=== PATIENT | female | born 1995 | race Caucasian/White ===

== ENCOUNTER 2020-01-05 15:01 | Outpatient (CLI) | payer BC, MEDICAID ==
--- NOTE | 2020-01-05 15:43 | Non Stress Test Report ---
Non Stress Test Datetime Report Generated by CPN: 01/05/2020 15:42 DEMOGRAPHIC EGA NST: 35.0 MONITORING Monitor Explained: Monitor Explained; Test Explained; Patient Verbalized Understanding Time on Monitor: 01/05/2020 15:13 Time off Monitor: 01/05/2020 15:38 NST Duration: 25 NST INTERVENTIONS NST Interventions: PO Hydration; Reposition Patient Physician Notified NST: KKaity Amaral, CNM BABY A: [id number] BABY A Movement : Present Contraction Frequency : none FHR Baseline : 125 Accelerations : 15X15 Variability : Moderate 6-25bpm NST Review: Meets Criteria for Reactive NST NST Review and Verified By : Jossie Worthy, RN NST Results: Reactive NST REPORT Report Trigger: Send Report
== END 2020-01-05 15:52 | disposition home or self-care (01) ==
LOC: LC 15:01
PROVIDERS: ATTEND Obstetrics & Gynecology
DX: O36.8130 Decreased fetal movements, third trimester, not applicable or unspecified (principal); Z3A.33 33 weeks gestation of pregnancy
CPT/HCPCS: 59025

== ENCOUNTER 2020-02-22 23:39 | Outpatient (CLI) | payer BC, MEDICAID ==
[2020-02-23 00:21] LABS: APPEARANCE,URINE TURBID; BILIRUBIN,URINE NEGATIVE (NEGATIVE); COLOR,URINE YELLOW; GLUCOSE, URINE NEGATIVE (NEGATIVE); KETONES,URINE NEGATIVE (NEGATIVE); LEUKOCYTE ESTERASE,URINE LARGE (NEGATIVE); NITRITE,URINE NEGATIVE (NEGATIVE); PROTEIN,URINE 30 mg/dL (NEGATIVE); URINE SPECIFIC GRAVITY 1.012; UROBILINOGEN,URINE NEGATIVE mg/dL (<2.0)
--- NOTE | 2020-02-23 00:35 | Non Stress Test Report ---
Non Stress Test Datetime Report Generated by CPN: 02/23/2020 00:35 DEMOGRAPHIC EGA NST: 40.1 INDICATION Indication for Study (NST) Other: LC - Swelling MONITORING Monitor Explained: Monitor Explained; Test Explained; Patient Verbalized Understanding Time on Monitor: 02/22/2020 23:55 Time off Monitor: 02/23/2020 00:25 NST Duration: 30 NST INTERVENTIONS NST Interventions: PO Hydration Physician Notified NST: Dr. Johnson BABY A: [id number] BABY A Movement : Present Contraction Frequency : 2-6 FHR Baseline : 120 Accelerations : 15X15 Decelerations : None Variability : Moderate 6-25bpm NST Review: Meets Criteria for Reactive NST NST Review and Verified By : Abdoul Cruz RN NST Results: Reactive NST REPORT Report Trigger: Send Report
[2020-02-23 00:38] LABS: URINE AMPHETAMINES SCREEN NEGATIVE; URINE BARBITURATES SCREEN NEGATIVE; URINE BENZODIAZEPINES SCREEN NEGATIVE; URINE COCAINE SCREEN NEGATIVE; URINE MARIJUANA (THC) SCREEN NEGATIVE; URINE METHADONE SCREEN NEGATIVE; URINE PHENCYCLIDINE SCREEN NEGATIVE
== END 2020-02-23 00:33 | disposition home or self-care (01) ==
LOC: LC 23:39
PROVIDERS: ATTEND Obstetrics & Gynecology
DX: O47.1 False labor at or after 37 completed weeks of gestation (principal); O48.0 Post-term pregnancy; Z3A.40 40 weeks gestation of pregnancy
CPT/HCPCS: 80307; 81005

== ENCOUNTER 2020-02-27 19:37 | Inpatient (IN) | payer BC, MEDICAID ==
[2020-02-27] MEDS ORDERED: DINOPROSTONE 10 MG VAGINAL INSERT.SR PV ONE (19:57)
[2020-02-27] MEDS ORDERED: RINGERS SOLUTION,LACTATED 1,000 ML IV ONE (19:57)
[2020-02-27] MEDS ORDERED: ACETAMINOPHEN 325 MG TABLET PO PRN (19:57)
[2020-02-27] MEDS ORDERED: MAG HYDROX/AL HYDROX/SIMETH SUSP 30 ML UDCUP PO PRN (19:57)
[2020-02-27] MEDS ORDERED: ZOLPIDEM TARTRATE 5 MG TABLET PO PRN (19:57)
[2020-02-27] MEDS ORDERED: MISOPROSTOL 0.2 MG TABLET ONE (20:52)
[2020-02-27] MEDS ORDERED: OXYTOCIN/0.9 % SODIUM CHLORIDE 30 UNIT/500 ML RTUINJ ONE (20:52)
[2020-02-27] MEDS ORDERED: LIDOCAINE 1% INJ-PF (10 MG/ML) 30 ML SDV ONE (20:52)
[2020-02-27] MEDS ORDERED: OXYTOCIN 10 UNIT/ML VIAL ONE (20:52)
[2020-02-27] MEDS ORDERED: DINOPROSTONE 10 MG VAGINAL INSERT.SR ONE (20:52)
[2020-02-27] MEDS: RINGERS SOLUTION,LACTATED 1,000 ML IV PRN (21:04)
[2020-02-27 21:07] LABS: ABSOLUTE EOSINOPHILS # (AUTO) 0.1 10^3/uL (0.0-0.6); ABSOLUTE LYMPHOCYTES (AUTO) 2.8 10^3/uL (0.5-4.7); ABSOLUTE MONOCYTES (AUTO) 1.1 10^3/uL (0.1-1.4); ABSOLUTE NEUT (AUTO) 11.1 10^3/uL (1.7-8.2); BASOPHILS % (AUTO) 0.2 % (0-2); EOSINOPHILS % (AUTO) 0.7 % (0-6); HEMATOCRIT 36.3 % (36.0-47.0); HEMOGLOBIN 12.2 g/dL (12.0-15.5); LYMPHOCYTES % (AUTO) 18.3 % (13-45); MEAN CORPUSCULAR HEMOGLOBIN 29.1 pg (27.0-33.4); MEAN CORPUSCULAR HGB CONC 33.6 g/dL (32.0-36.0); MEAN CORPUSCULAR VOLUME 87 fl (80-97); PLATELET COUNT 192 10^3/uL (150-450); RED BLOOD COUNT 4.18 10^6/uL (3.72-5.28); RED CELL DISTRIBUTION WIDTH 13.1 % (11.5-14.0); SEGMENTED NEUTROPHILS % (AUTO) 73.8 % (42-78); TOTAL CELLS COUNTED % (AUTO) 100 %; WHITE BLOOD COUNT 15.1 10^3/uL (4.0-10.5)
[2020-02-27 21:17] LABS: APPEARANCE,URINE CLEAR; BILIRUBIN,URINE NEGATIVE (NEGATIVE); COLOR,URINE STRAW; GLUCOSE, URINE NEGATIVE (NEGATIVE); KETONES,URINE NEGATIVE (NEGATIVE); LEUKOCYTE ESTERASE,URINE NEGATIVE (NEGATIVE); NITRITE,URINE NEGATIVE (NEGATIVE); PROTEIN,URINE NEGATIVE (NEGATIVE); URINE SPECIFIC GRAVITY 1.008; UROBILINOGEN,URINE NEGATIVE mg/dL (<2.0)
[2020-02-27 21:23] LABS: URINE AMPHETAMINES SCREEN NEGATIVE; URINE BARBITURATES SCREEN NEGATIVE; URINE BENZODIAZEPINES SCREEN NEGATIVE; URINE COCAINE SCREEN NEGATIVE; URINE MARIJUANA (THC) SCREEN NEGATIVE; URINE METHADONE SCREEN NEGATIVE; URINE PHENCYCLIDINE SCREEN NEGATIVE
--- NOTE | 2020-02-28 00:19 | Admission Physical ---
Datetime Report Generated by CPN: 02/28/2020 00:18 CURRENT ADMISSION Chief Complaint: Scheduled Induction of Labor Indication for Induction: Post Dates Admit Impression : Term, Intrauterine ; Postterm, Intrauterine Admit Plan: Admit to Unit; Initiate Labor Induction Protocol ALLERGIES Medication Allergies: No Medication Allergies: No Known Allergies (02/27/2020) Latex: No Latex Allergies Food Allergies: n/a Environmental Allergies: n/a OBSTETRICAL HISTORY EDC: 02/21/2020 00:00 : 1 Para: 0 Term: 0 : 0 SAB: 0 IAB: 0 Ectopic: 0 Livin Cesareans: 0 VBACs: 0 Multiple Births: 0 Gestational Diabetes: No Rh Sensitization: No Incompetent Cervix: No DAVID: No Infertility: No ART Treatment: No Uterine Anomaly: No IUGR: No Hx Previous C/S: No Macrosomia: No Hx Loss/Stillborn: No PIH: No Hx : No Placenta Previa/Abruption: No Depression/PP Depression: No PTL/PROM: No Post Hemorrhage: No Current Procedures: Ultrasound Obstetrical History Comments: G1- current SEE RECORDS Alcohol: No Marijuana : No Cocaine: No Other Illicit Drugs: No Cigarettes: Former Smoker. [id number] MEDICAL HISTORY Diabetes: No Blood Transfusion: No Pulmonary Disease (Asthma, TB): No Breast Disease: No Hypertension: No Environment Artist Surgery: No Heart Disease: No Hosp/Surgery: Yes Autoimmune Disorder: No Anesthetic Complications: No Kidney Disease: No Abnormal Pap Smear: No Neuro/Epilepsy: No Psychiatric Disorders: No Other Medical Diseases: No Hepatitis/Liver Disease: No Significant Family History: No Varicosities/Phlebitis: No Trauma/Violence : No Thyroid Dysfunction: No Medical History Comments: root canal on 02/21/2020 INFECTIOUS HISTORY Gonorrhea: No Genital Herpes: No Chlamydia: No Tuberculosis: No Syphilis: No Hepatitis: No HIV/AIDS Exposure: No Rash or Viral Illness: No HPV: No PHYSICAL EXAM General: Normal HEENT: Normal Neurologic: Normal Thyroid: Normal Heart: Normal Lungs: Normal Breast: Deferred Back: Normal Abdomen: Normal Genitourinary Exam: Normal Extremities: Normal DTRs: Normal Pelvic Type: Adequate Vital Signs: Reviewed VAGINAL EXAM Dilatation: 1 Effacement: 0 MEMBRANES Pooling: Negative Membranes: Intact FETUS A EGA: 41.0 Monitoring: External US FHR- Baseline: 140 Variability: Moderate 6-25bpm Accelerations: 15X15 Decelerations: None FHR Category: Category I Presentation: Vertex Admit Comment: admit for induction PLANS FOR LABOR AND DELIVERY Labor and Delivery: None Pain Management: None Feeding Preference: Breast Benefit of Breast Feed Discussed: Yes Circumcision: Yes INFORMED CONSENT Signature: with User ID: [email or web address]
[2020-02-28] MEDS ORDERED: NALBUPHINE HCL INJ 10 MG/1 ML AMPULE ONE ×2 (05:36→10:37)
[2020-02-28] MEDS ORDERED: PROMETHAZINE HCL INJ 25 MG/1 ML VIAL ONE ×2 (05:36→10:38)
[2020-02-28] MEDS ORDERED: PROMETHAZINE HCL INJ 25 MG/1 ML VIAL IV ONE ×2 (05:38→10:47)
[2020-02-28] MEDS ORDERED: NALBUPHINE HCL INJ 10 MG/1 ML AMPULE INJ ONE (05:38)
[2020-02-28] MEDS ORDERED: NALBUPHINE HCL INJ 10 MG/1 ML AMPULE IV ONE (10:47)
[2020-02-28] MEDS ORDERED: OXYTOCIN/0.9 % SODIUM CHLORIDE 30 UNIT/500 ML RTUINJ IV PRN (11:23)
[2020-02-28] MEDS ORDERED: FENTANYL/BUPIVACAINE/NS/PF 300 MCG/150 ML RTUINJ EPI ONE (13:19)
[2020-02-28] MEDS ORDERED: EPHEDRINE SULFATE INJ 50 MG/1 ML AMPULE ONE (13:19)
[2020-02-28] MEDS ORDERED: BUPIVACAINE HCL 0.25 % INJ/PF (2.5 MG/1 ML) 30 ML VIAL ONE (13:19)
[2020-02-28] MEDS: RINGERS SOLUTION,LACTATED 1,000 ML IV PRN (18:20)
[2020-02-29] MEDS ORDERED: ZOLPIDEM TARTRATE 5 MG TABLET PO PRN (01:55)
[2020-02-29] MEDS ORDERED: BENZOCAINE/MENTHOL AEROSOL SPRAY 56 ML TOP PRN (01:55)
[2020-02-29] MEDS ORDERED: ACETAMINOPHEN WITH CODEINE #3 TABLET PO PRN ×2 (01:55)
[2020-02-29] MEDS ORDERED: GLYCERIN/WITCH HAZEL LEAF 1 EACH MED..WIPE TP PRN (01:55)
[2020-02-29] MEDS ORDERED: PROMETHAZINE HCL INJ 25 MG/1 ML VIAL IV PRN (01:55)
[2020-02-29] MEDS ORDERED: OXYTOCIN/0.9 % SODIUM CHLORIDE 30 UNIT/500 ML RTUINJ IV PRN (01:55)
[2020-02-29] MEDS ORDERED: MAGNESIUM HYDROXIDE SUSP 30 ML UDCUP PO PRN (01:55)
[2020-02-29] MEDS ORDERED: DIPH/PERTUSS(ACELL)/TETANUS VAC/PF 0.5 ML SYR (>=10YO) IM PRN (01:55)
[2020-02-29] MEDS ORDERED: PROMETHAZINE HCL 25 MG TABLET PO PRN (01:55)
[2020-02-29] MEDS ORDERED: PROMETHAZINE HCL 25 MG SUPP.RECT PR PRN (01:55)
[2020-02-29] MEDS ORDERED: DIBUCAINE 1% OINTMENT 28 GM TP PRN (01:55)
[2020-02-29] MEDS ORDERED: NA PHOS,M-B/NA PHOS,DI-BA (ADULT) 133 ML ENEMA PR PRN (01:55)
[2020-02-29] MEDS ORDERED: MEASLES,MUMPS&RUBELLA VACC/PF 0.5 ML VIAL SUBCUT PRN (01:55)
[2020-02-29] MEDS ORDERED: PSEUDOEPHEDRINE HCL 30 MG TABLET PO PRN (01:55)
[2020-02-29] MEDS ORDERED: ACETAMINOPHEN 650 MG SUPP.RECT PR PRN (01:55)
[2020-02-29] MEDS ORDERED: DIPHENHYDRAMINE HCL 25 MG CAPSULE PO PRN (01:55)
[2020-02-29] MEDS: IBUPROFEN 800 MG TABLET PO SCH ×3 (05:23→21:06)
[2020-02-29] MEDS: SENNOSIDES/DOCUSATE 8.6-50 MG 1 EACH TABLET PO SCH (11:59)
[2020-02-29] MEDS: PRENATAL VITAMIN W DHA CAPSULE PO SCH (11:59)
[2020-02-29] MEDS: FERROUS SULFATE 325 MG TABLET PO SCH ×2 (11:59→17:31)
[2020-02-29] MEDS: FAMOTIDINE 20 MG TABLET PO SCH ×2 (11:59→21:06)
[2020-02-29] MEDS: DOCUSATE SODIUM 100 MG CAPSULE PO SCH ×2 (11:59→17:31)
--- NOTE | 2020-02-29 14:12 | PDOC PROGRESS REPORT ---
Subjective-OB Progress Note for:: 02/29/20 - PP Day #1, doing well, , A+, Rubella Immune, UOB voiding Physical Exam (OB) Vital Signs: Temp Pulse Resp BP Pulse Ox 97.6 F 64 16 100/55 L 99 02/29/20 08:00 02/29/20 08:00 02/29/20 08:00 02/29/20 08:00 02/29/20 08:00 Intake & Output 02/28/20 02/29/20 03/01/20 06:59 06:59 06:59 Intake Total 1000 Balance 1000 Weight 90.4 kg - General General Appearance: Appears well, Alert - PIH/Pre-Eclampsia DTR's: 2 + Clonus: Negative Headache: Absent Epigastric Pain: No Visual Changes: No - Lochia Lochia Amount: Small 10-25 ml Lochia Color: Rubra/Red - Abdomen Description: Tender, Flat Hernia Present: No Fundal Description: Firm, Midline Fundal Height: u/u - u/2 - Respiratory Respiratory Status: No respiratory distress - Genitourinary Genitourinary Note: voiding - Extremities Upper extremity: Normal inspection Lower extremities: Normal inspection - Neurological Cognition: Normal Orientation: AAOx4 - Psychological Associated symptoms: Normal affect, Normal mood Objective-Diagnostic Laboratory: 02/27/20 20:52 Assessment and Plan(PN) - Assessment and Plan (1) (normal spontaneous vaginal delivery) Is this a current diagnosis for this admission?: Yes (2) Encounter for induction of labor Is this a current diagnosis for this admission?: Yes (3) Second degree perineal laceration Is this a current diagnosis for this admission?: Yes Plan:: Routine PP orders - Time Spent with Patient Time with patient: Less than 15 minutes Medications reviewed and adjusted accordingly: Yes - Disposition Anticipated Discharge: Home Within: within 24 hours
[2020-03-01] MEDS: IBUPROFEN 800 MG TABLET PO SCH ×2 (05:53→13:25)
[2020-03-01 07:40] LABS: HEMATOCRIT 32.2 % (36.0-47.0); HEMOGLOBIN 10.9 g/dL (12.0-15.5); MEAN CORPUSCULAR HEMOGLOBIN 29.9 pg (27.0-33.4); MEAN CORPUSCULAR VOLUME 88 fl (80-97); PLATELET COUNT 190 10^3/uL (150-450); RED BLOOD COUNT 3.66 10^6/uL (3.72-5.28); RED CELL DISTRIBUTION WIDTH 13.3 % (11.5-14.0); WHITE BLOOD COUNT 17.3 10^3/uL (4.0-10.5)
[2020-03-01] MEDS: FERROUS SULFATE 325 MG TABLET PO SCH (09:29)
[2020-03-01] MEDS: FAMOTIDINE 20 MG TABLET PO SCH (09:29)
[2020-03-01] MEDS: PRENATAL VITAMIN W DHA CAPSULE PO SCH (09:29)
[2020-03-01] MEDS: SENNOSIDES/DOCUSATE 8.6-50 MG 1 EACH TABLET PO SCH (09:29)
[2020-03-01] MEDS: DOCUSATE SODIUM 100 MG CAPSULE PO SCH (09:29)
--- NOTE | 2020-03-01 09:49 | PDOC PROGRESS REPORT ---
Subjective-OB Progress Note for:: 03/01/20 Subjective: Doing well, ready to go home, breast feeding, voiding Physical Exam (OB) Vital Signs: Temp Pulse Resp BP Pulse Ox 97.5 F 93 18 105/74 97 03/01/20 07:41 03/01/20 07:41 03/01/20 07:41 03/01/20 07:41 03/01/20 07:41 Intake & Output 02/29/20 03/01/20 03/02/20 06:59 06:59 06:59 Intake Total 600 Balance 600 - PIH/Pre-Eclampsia DTR's: 2 + Clonus: Negative Headache: Absent Epigastric Pain: No Visual Changes: No - Lochia Lochia Amount: Small 10-25 ml Lochia Color: Rubra/Red - Abdomen Description: Tender, Flat Hernia Present: No Fundal Description: Firm, Midline Fundal Height: u/u - u/2 Objective-Diagnostic Laboratory: 03/01/20 07:30 03/01/20 07:30 WBC 17.3 H RBC 3.66 L Hgb 10.9 L Hct 32.2 L MCV 88 MCH 29.9 MCHC 34.0 RDW 13.3 Plt Count 190 Assessment and Plan(PN) - Assessment and Plan (1) Encounter for induction of labor Is this a current diagnosis for this admission?: Yes (2) (normal spontaneous vaginal delivery) Is this a current diagnosis for this admission?: Yes (3) Second degree perineal laceration Is this a current diagnosis for this admission?: Yes - Time Spent with Patient Time with patient: Less than 15 minutes Medications reviewed and adjusted accordingly: Yes - Disposition Anticipated Discharge: Home Within: within 24 hours
--- NOTE | 2020-03-01 09:56 | PDOC DISCHARGE SUMMARY ---
Impression - Admit/DC Date/PCP Admission Date/Primary Care Provider: 02/27/20 19:37 LAURA DUNCAN MD Discharge Date: 03/01/20 - Discharge Diagnosis (1) Encounter for induction of labor Is this a current diagnosis for this admission?: Yes (2) (normal spontaneous vaginal delivery) Is this a current diagnosis for this admission?: Yes (3) Second degree perineal laceration Is this a current diagnosis for this admission?: Yes - Additional Information Resuscitation Status: Full Code Discharge Diet: As Tolerated, Regular Discharge Activity: Activity As Tolerated, Pelvic Rest Referrals: LAURA DUNCAN MD [Primary Care Provider] - Home Medications: Vits96/Iron Fum/Folic [ Tablet] 1 each PO DAILY 01/05/20 HPI Gestational Age: 40.6 Reason(s) for Admission: Induction of Labor Procedures: NST, Ultrasound Intrapartum Procedure(s): Spontaneous Vaginal Delivery Complication(s): Laceration-Periurethral Hospital Course Hospital Course: routine Results Laboratory Results: WBC 17.3 10^3/uL (4.0-10.5) H 03/01/20 07:30 RBC 3.66 10^6/uL (3.72-5.28) L 03/01/20 07:30 Hgb 10.9 g/dL (12.0-15.5) L 03/01/20 07:30 Hct 32.2 % (36.0-47.0) L 03/01/20 07:30 MCV 88 fl (80-97) 03/01/20 07:30 MCH 29.9 pg (27.0-33.4) 03/01/20 07:30 MCHC 34.0 g/dL (32.0-36.0) 03/01/20 07:30 RDW 13.3 % (11.5-14.0) 03/01/20 07:30 Plt Count 190 10^3/uL (150-450) 03/01/20 07:30 Lymph % (Auto) 18.3 % (13-45) 02/27/20 20:52 [place] % (Auto) 7.0 % (3-13) 02/27/20 20:52 Eos % (Auto) 0.7 % (0-6) 02/27/20 20:52 Baso % (Auto) 0.2 % (0-2) 02/27/20 20:52 Absolute Neuts (auto) 11.1 10^3/uL (1.7-8.2) H 02/27/20 20:52 Absolute Lymphs (auto) 2.8 10^3/uL (0.5-4.7) 02/27/20 20:52 Absolute Monos (auto) 1.1 10^3/uL (0.1-1.4) 02/27/20 20:52 Absolute Eos (auto) 0.1 10^3/uL (0.0-0.6) 02/27/20 20:52 Absolute Basos (auto) 0.0 10^3/uL (0.0-0.2) 02/27/20 20:52 Seg Neutrophils % 73.8 % (42-78) 02/27/20 20:52 Urine Color STRAW 02/27/20 19:55 Urine Appearance CLEAR 02/27/20 19:55 Urine pH 6.0 (5.0-9.0) 02/27/20 19:55 Ur Specific [place]ang 1.008 02/27/20 19:55 Urine Protein NEGATIVE mg/dL (NEGATIVE) 02/27/20 19:55 Urine Glucose (UA) NEGATIVE mg/dL (NEGATIVE) 02/27/20 19:55 Urine Ketones NEGATIVE mg/dL (NEGATIVE) 02/27/20 19:55 Urine Blood NEGATIVE (NEGATIVE) 02/27/20 19:55 Urine Nitrite NEGATIVE (NEGATIVE) 02/27/20 19:55 Urine Bilirubin NEGATIVE (NEGATIVE) 02/27/20 19:55 Urine Urobilinogen NEGATIVE mg/dL (<2.0) 02/27/20 19:55 Ur Leukocyte Esterase NEGATIVE (NEGATIVE) 02/27/20 19:55 Urine Ascorbic Acid NEGATIVE (NEGATIVE) 02/27/20 19:55 Urine Opiates Screen NEGATIVE 02/27/20 19:55 Urine Methadone Screen NEGATIVE 02/27/20 19:55 Ur Barbiturates Screen NEGATIVE 02/27/20 19:55 Ur Phencyclidine Scrn NEGATIVE 02/27/20 19:55 Ur Amphetamines Screen NEGATIVE 02/27/20 19:55 U Benzodiazepines Scrn NEGATIVE 02/27/20 19:55 Urine Cocaine Screen NEGATIVE 02/27/20 19:55 U Marijuana (THC) Screen NEGATIVE 02/27/20 19:55 RPR NONREACTIVE (NONREACTIVE) 02/27/20 20:52 Blood Type A POSITIVE 02/27/20 20:52 Antibody Screen NEGATIVE 02/27/20 20:52 Plan Health Concerns: routine Plan of Treatment: routine Goals: no complications Time Spent: Less than 30 Minutes
[2020-03-01 10:26] VITALS: BP 100/55
--- NOTE | 2020-03-05 07:50 | Delivery Summary ---
Del Sum A-C Datetime Report Generated by CPN: 03/05/2020 07:49 DELIVERY PERSONNEL DELIVERY PERSONNEL: [id number] Delivery Doctor:: Nimisha Hodge MD Labor and Delivery Nurse:: Jasmyn Cruz RNassembler gold frame Nurse:: GREYSON Bermudez Nursery Nurse:: irene Zimmerman RN MATERNAL INFORMATION Delivery Anesthesia: Local; Epidural Medications After Delivery: Pitocin Bolus-Please Comment; Pitocin 30 Units in 500ml NS/D5W Delivery QBL: 100 Maternal Complications: None Provider Comments: Called to patients room complete and pushing. Dr. Talley in room and I relieved him.She delivered after a few pushes. Viable male in vertex presentation. vigorous and cord clamping delayed 30 seconds. Oral and nasal suctioning. placed skin to skin. Both Mother and stable. LABOR SUMMARY EDC: 02/21/2020 00:00 No. Babies in Womb: 1 Attempted: No Labor Anesthesia: Epidural LABOR INFORMATION Reason for Induction: Postterm Onset of Labor: 02/28/2020 10:28 Complete Dilatation: 02/28/2020 21:10 Cervical Ripening Agents: Cervidil Oxytocin: Induction Group B Beta Strep: Negative Antibiotics # of Doses: 0 Antibiotics Time of Last Dose: 0 Name of Antibiotic Given: 0 Steroids Given: None Reason Steroids Not Administered: Not Applicable MEMBRANES Membranes Rupture Method: Artificial Rupture of Membranes: 02/28/2020 10:28 Length of Rupture (hr): 12.38 Amniotic Fluid Color: Clear Amniotic Fluid Amount: Moderate Amniotic Fluid Odor: Normal STAGES OF LABOR Stage 1 hr: 10 Stage 1 min: 42 Stage 2 hr: 1 Stage 2 min: 41 Stage 3 hr: 0 Stage 3 min: 5 Total Time in Labor hr: 12 Total Time in Labor min: 28 VAGINAL DELIVERY Episiotomy: None Laceration #1: Perineal Laceration Extension #1: Second Degree Laceration Repair: Yes Laceration Repair Note: In layered closure with 2-0 chromic and 3-0 chromic Sponge Count Correct: N/A Sharps Count Correct: N/A CSECTION DELIVERY Primary Indication: N/A Secondary Indication: N/A CSection Incidence: N/A Labor: N/A Elective: N/A CSection Incision: N/A BABY A INFORMATION Infant Delivery Date/Time: 02/28/2020 22:51 Method of Delivery: Vaginal Method of Delivery: Vaginal Nurse Controlled Delivery: No Born in Route : No : N/A Forceps: N/A Vacuum Extraction: N/A Shoulder Dystocia : No PRESENTATION/POSITION BABY A Presentation: Cephalic Cephalic Presentation: Vertex Vertex Position: Right Occipital Anterior Breech Presentation: N/A PLACENTA INFORMATION BABY A Placenta Delivery Time : 02/28/2020 22:56 Placenta Method of Delivery: Spontaneous Placenta Method of Delivery: Spontaneous Placenta Status: Delivered SCORES BABY A Heart Rate 1 min: >100 bpm Resp Effort 1 min: Good Cry Reflex Irritability 1 min: Cough or Sneeze or Pulls Away Muscle Tone 1 min: Some Flexion of Extremities Color 1 min: Blue/Pale SCORE 1 MIN: 7 Heart Rate 5 min: >100 bpm Resp Effort 5 min: Good Cry Reflex Irritability 5 min: Cough or Sneeze or Pulls Away Muscle Tone 5 min: Active Motion Color 5 min: Body [place], Extremities Blue SCORE 5 MIN: 9 INFORMATION BABY A Gestational Age at Delivery: 41.0 Gestational Status: Late Term- 41- 41.6 Weeks Outcome : Liveborn Infant Condition : Stable Infant Sex: Male Infant Sex: Male IDENTIFICATION BABY A Infant Verification Date/Time: 02/29/2020 00:10 ID Band Number: [id number] Mother's Name Verified: Yes RN Verifying : , RN/MJerry, RN WEIGHT/LENGTH BABY A Birthweight (gm): 4148 Infant Weight (lb): 9 Weight (oz): 2 Infant Length (in): 21.25 Length (cm): 53.98 CORD INFORMATION BABY A No. Cord Vessels: 3 Nuchal Cord : N/A Cord Blood Taken: Yes-For Storage (Mom's Blood type +) Suction: Mouth; Nose ASSESSMENT BABY A Complications: None Physical Findings at Delivery: Caput Succedaneum Physical Findings- Other: see nursery admission assessment Infant Respirations: Appears Normal Skin to Skin: Yes Skin to Skin Time (min): 60 Gin Inspector/ALS Called : No Infant Care By: Cleo Zimmerman RN Transferred To: Remains with Mother BABY B INFORMATION : N/A SIGNATURES Signature: with User ID: [email or web address] : with User ID: [email or web address]
== END 2020-03-01 15:27 | disposition home or self-care (01) | DRG 807 ==
LOC: LR 19:37 → 2S 02-29 02:52
PROVIDERS: ADMIT Obstetrics & Gynecology; ATTEND Obstetrics & Gynecology
PROC: 10E0XZZ Delivery of Products of Conception, External Approach (ICD-10-PCS; principal; 2020-02-28)
PROC: 0KQM0ZZ Repair Perineum Muscle, Open Approach (ICD-10-PCS; 2020-02-28)
DX: O48.0 Post-term pregnancy (principal); Z37.0 Single live birth; O70.1 Second degree perineal laceration during delivery; Z3A.41 41 weeks gestation of pregnancy
CPT/HCPCS: 1967; 36415; 80307; 81005; 85025; 85027; 86592; 86850; 86900; 86901; J2300; J2550; J2590; J3010; J3490